=== PATIENT | male | born 1990 | race Hispanic/Latino ===

== ENCOUNTER 2017-05-15 23:46 | Emergency (ER) | payer BC ==
--- NOTE | 2017-05-16 00:51 | ED PDOC ---
HPI: General Adult Time Seen by Provider: 05/16/17 00:26 Chief Complaint (Nursing): Flu-like Symptoms Chief Complaint (Provider): flu-like symptoms History Per: Patient History/Exam Limitations: no limitations Onset/Duration Of Symptoms: Days (1) Current Symptoms Are (Timing): Still Present Additional History Per: Patient Additional Complaint(s): 26 y/o male presents with flu-like symptoms x 1 day. Patient reports fever, chills, bodyaches, and nasal congestion x 1 day, worsening. No relief with mucinex. Denies nausea/vomiting, abdominal pain, changes in bowel movements, known sick contacts. Past Medical History Reviewed: Historical Data, Nursing Documentation, Vital Signs Vital Signs: Last Vital Signs Temp 99.2 F 05/16/17 02:41 Pulse 95 H 05/16/17 02:41 Resp 15 05/16/17 02:41 BP 104/64 05/16/17 02:41 Pulse Ox 95 05/16/17 02:41 - Medical History PMH: No Chronic Diseases - Surgical History Surgical History: No Surg Hx - Family History Family History: States: No Known Family Hx - Home Medications Home Medications: Ambulatory Orders Medication Instructions Recorded Ibuprofen [Motrin Tab] 1 tab PO Q6 PRN #20 tab 05/16/17 Oseltamivir [Tamiflu] 75 mg PO BID #9 cap 05/16/17 - Allergies Allergies/Adverse Reactions: Allergies Allergy/AdvReac Type Severity Reaction Status Date / Time No Known Allergies Allergy Verified 05/16/17 00:13 Review of Systems ROS Statement: Except As Marked, All Systems Reviewed And Found Negative Constitutional: Positive for: Fever, Chills ENT: Positive for: Nose Discharge, Nose Congestion Physical Exam - Reviewed Nursing Documentation Reviewed: Yes Vital Signs Reviewed: Yes - Physical Exam Appears: Positive for: Well, Non-toxic, No Acute Distress Head Exam: Positive for: ATRAUMATIC, NORMAL INSPECTION, NORMOCEPHALIC Skin: Positive for: Normal Color Eye Exam: Positive for: Normal appearance ENT: Positive for: Normal ENT Inspection Cardiovascular/Chest: Positive for: Regular Rate, Rhythm Respiratory: Positive for: Normal Breath Sounds Gastrointestinal/Abdominal: Positive for: Normal Exam Back: Positive for: Normal Inspection Extremity: Positive for: Normal ROM Neurologic/Psych: Positive for: Alert, Oriented - ECG O2 Sat by Pulse Oximetry: 99 - Progress ED Course And Treament: influenza, ibuprofen Patient educated on findings, will treat with Tamiflu for flu-like symptoms. Rx Tamiflu, Ibuprofen given. Advised fluids, rest. Follow up PMD 2-3 days. Return precautions given. Disposition - Clinical Impression Clinical Impression: Influenza-like symptoms - Patient ED Disposition Is Patient to be Admitted: No Counseled Patient/Family Regarding: Studies Performed, Diagnosis, Need For Followup, Rx Given - Disposition Disposition: Routine/Home Disposition Time: 03:33 Condition: IMPROVED Prescriptions: Ibuprofen [Motrin Tab] 1 tab PO Q6 PRN #20 tab PRN Reason: Pain, Moderate (4-7) Oseltamivir [Tamiflu] 75 mg PO BID #9 cap Instructions: Influenza (ED) Forms: [employer] ([place])
[2017-05-16 02:41] VITALS: BP 104/64; PULSE 95; RESP 15; TEMP 99.2
[2017-05-16 03:37] VITALS: O2SAT 99
== END 2017-05-16 03:51 | disposition home or self-care (01) ==
LOC: H.ER 23:46
DX: R50.9 Fever, unspecified (principal); R09.81 Nasal congestion; M79.1 Myalgia